=== PATIENT | female | born 1980 | race African-American/Black ===

== ENCOUNTER 2017-11-10 10:16 | Inpatient (IN) | payer OTHER ==
--- NOTE | 2017-11-10 11:18 | ER Document Report ---
ED Headache - General Chief Complaint: Headache Stated Complaint: HEADACHE Time Seen by Provider: 11/10/17 11:17 Mode of Arrival: Ambulatory Information source: Patient TRAVEL OUTSIDE OF THE [place] IN LAST 30 DAYS: No - HPI Patient complains to provider of: "Migraine" Patient reports: Occasional migraines Onset: Yesterday Onset was: Abrupt. denies: Thunderclap Timing: Still present Quality of pain: Dull, Throbbing Severity: Severe Context: denies: CO exposure, Head injury, Insect bite, Meningitis exposure, Tick bite Associated symptoms: Chills, Nausea/vomiting, Photophobia. denies: Fever Exacerbated by: Light, Noise, Movement Similar symptoms previously: Yes - SAYS PRESENT H.A. ENTIRELY TYPICAL FOR HER "MIGRAINES" Recently seen / treated by doctor: No - Related Data Allergies/Adverse Reactions: ketorolac tromethamine [From Toradol] Allergy (Verified 10/08/16 14:46) metoclopramide [From Reglan] Allergy (Verified 10/08/16 14:46) quetiapine fumarate [From Seroquel] Allergy (Verified 10/08/16 14:46) sumatriptan [From Imitrex] Allergy (Verified 10/08/16 14:46) topiramate [From Topamax] Allergy (Verified 10/08/16 14:46) venlafaxine [Venlafaxine] Allergy (Verified 10/08/16 14:46) Past Medical History - General Information source: Patient - Social History Smoking Status: Unknown if Ever Smoked Frequency of alcohol use: Rare Drug Abuse: None Lives with: Spouse/Significant other Family History: Reviewed & Not Pertinent Patient has suicidal ideation: No Patient has homicidal ideation: No - Past Medical History Cardiac Medical History: Reports: None Pulmonary Medical History: Reports: None EENT Medical History: Reports: None Neurological Medical History: Reports: Hx Migraine Endocrine Medical History: Reports: None Renal/ Medical History: Reports: Hx Kidney Stones Malignancy Medical History: Reports: None GI Medical History: Reports: None Musculoskeltal Medical History: 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 denies: Fever EENT: No symptoms reported Cardiovascular: No symptoms reported Respiratory: No symptoms reported Gastrointestinal: See HPI Genitourinary: No symptoms reported Female Genitourinary: No symptoms reported Musculoskeletal: No symptoms reported Skin: No symptoms reported Neurological/Psychological: See HPI Physical Exam - Vital signs Vitals: Temp Pulse Resp BP Pulse Ox 99.0 F 74 20 157/87 H 100 11/10/17 10:25 11/10/17 10:25 11/10/17 10:25 11/10/17 10:25 11/10/17 10:25 Interpretation: Hypertensive. No: Tachycardic, Tachypneic, Febrile - General General appearance: Appears well, Alert In distress: None - HEENT Head: Normocephalic Eyes: Normal, Other - PHOTOPHOBIC Conjunctiva: Normal Ears: Normal Nasal: Normal Mouth/Lips: Normal Mucous membranes: Normal Pharynx: Normal Neck: Normal, Supple - Respiratory Respiratory status: No respiratory distress - Cardiovascular Rhythm: Regular - Abdominal Inspection: Normal Distension: No distension - Back Back: Normal - Extremities General upper extremity: Normal inspection General lower extremity: Normal inspection - Neurological Neuro grossly intact: Yes Cognition: Normal Orientation: AAOx4 - Psychological Associated symptoms: Normal affect, Normal mood - Skin Skin Temperature: Warm Skin Moisture: Dry Skin Color: Normal Skin Turgor: Elastic Course - Vital Signs Vital signs: Temp Pulse Resp BP Pulse Ox 99.0 F 78 16 179/109 H 100 11/10/17 10:25 11/10/17 17:39 11/10/17 13:00 11/10/17 17:39 11/10/17 10:25 - Laboratory Result Diagrams: 11/10/17 15:00 11/10/17 15:00 Laboratory results interpreted by me: 11/10/17 15:00 Potassium 3.1 L Chloride 109 H Carbon Dioxide 20 L - Consults DR. GONZALEZ Time consulted: 17:48 Consulted provider: will come to ER Discharge - Discharge Clinical Impression: Hypertensive urgency Migraine headache Qualifiers: Migraine type: unspecified Status migrainosus presence: without status migrainosus Intractability: intractable Qualified Code(s): G43.919 - Migraine, unspecified, intractable, without status migrainosus Condition: Good Disposition: ADMITTED OBSERVATION Admitting Provider: Hospitalist
[2017-11-10] MEDS ORDERED: NORMAL SALINE 1000 ML 1,000 ML IV ONE ×2 (11:33→15:41)
[2017-11-10] MEDS ORDERED: ONDANSETRON HCL INJ/PF 4 MG/2 ML SDV IV ONE ×2 (11:33→14:27)
[2017-11-10] MEDS ORDERED: DIPHENHYDRAMINE HCL 50 MG/ML VIAL IV ONE ×3 (11:33→20:00)
[2017-11-10] MEDS ORDERED: HYDRALAZINE HCL INJ/PF 20 MG/1 ML SDV IV ONE (11:34)
[2017-11-10] MEDS ORDERED: HYDROMORPHONE HCL INJ/PF 2 MG/ML AMPULE IV ONE (14:27)
[2017-11-10 15:15] LABS: ABSOLUTE BASOPHILS # (AUTO) 0.1 10^3/uL (0.0-0.2); ABSOLUTE LYMPHOCYTES (AUTO) 1.9 10^3/uL (0.5-4.7); ABSOLUTE MONOCYTES (AUTO) 0.4 10^3/uL (0.1-1.4); ABSOLUTE NEUT (AUTO) 3.3 10^3/uL (1.7-8.2); BASOPHILS % (AUTO) 0.9 % (0-2); EOSINOPHILS % (AUTO) 0.5 % (0-6); HEMATOCRIT 40.8 % (36.0-47.0); HEMOGLOBIN 14.1 g/dL (12.0-15.5); LYMPHOCYTES % (AUTO) 32.8 % (13-45); MEAN CORPUSCULAR HEMOGLOBIN 30.7 pg (27.0-33.4); MEAN CORPUSCULAR HGB CONC 34.6 g/dL (32.0-36.0); MEAN CORPUSCULAR VOLUME 89 fl (80-97); MONOCYTES % (AUTO) 7.2 % (3-13); PLATELET COUNT 239 10^3/uL (150-450); RED BLOOD COUNT 4.59 10^6/uL (3.72-5.28); RED CELL DISTRIBUTION WIDTH 12.4 % (11.5-14.0); SEGMENTED NEUTROPHILS % (AUTO) 58.6 % (42-78); TOTAL CELLS COUNTED % (AUTO) 100 %; WHITE BLOOD COUNT 5.7 10^3/uL (4.0-10.5)
[2017-11-10] MEDS ORDERED: METOPROLOL TARTRATE PF/INJ 5 MG/5 ML SDV IV ONE (15:23)
[2017-11-10 15:35] LABS: ALANINE AMINOTRANSFERASE 39 U/L (9-52); ALBUMIN 4.4 g/dL (3.5-5.0); ALKALINE PHOSPHATASE 96 U/L (38-126); ANION GAP 12 (5-19); ASPARTATE AMINO TRANSFERASE 20 U/L (14-36); BILIRUBIN,DIRECT 0.1 mg/dL (0.0-0.4); BILIRUBIN,TOTAL 0.5 mg/dL (0.2-1.3); BLOOD UREA NITROGEN 11 mg/dL (7-20); CALCIUM 9.4 mg/dL (8.4-10.2); CARBON DIOXIDE 20 mmol/L (22-30); CHLORIDE 109 mmol/L (98-107); GLUCOSE 88 mg/dL (75-110); POTASSIUM 3.1 mmol/L (3.6-5.0); SODIUM 141.4 mmol/L (137-145); TOTAL PROTEIN 7.1 g/dL (6.3-8.2)
[2017-11-10] MEDS ORDERED: PROMETHAZINE HCL INJ 25 MG/1 ML VIAL IV ONE ×2 (15:39→20:00)
[2017-11-10] MEDS ORDERED: LABETALOL HCL INJ 20 MG/4 ML DISP.SYRIN IV ONE (17:36)
[2017-11-10] MEDS ORDERED: ZOLPIDEM TARTRATE 5 MG TABLET PO PRN (17:53)
[2017-11-10] MEDS ORDERED: BUTALB/ACETAMINOPHEN/CAFFEINE 1 TAB EACH PO PRN (18:00)
[2017-11-10] MEDS ORDERED: CLONIDINE HCL 0.1 MG TABLET PO PRN (18:01)
[2017-11-10] MEDS ORDERED: NIFEDIPINE 30 MG TAB.ER.24 PO ONE (18:30)
[2017-11-10] MEDS ORDERED: LORAZEPAM 0.5 MG TABLET PO ONE (18:30)
[2017-11-10] MEDS ORDERED: CLONIDINE HCL 0.1 MG TABLET PO ONE (18:30)
[2017-11-10] MEDS ORDERED: POTASSIUM CHLORIDE IV PRN ×3 (18:56)
[2017-11-10] MEDS ORDERED: WATER IV PRN ×3 (18:56)
[2017-11-10] MEDS ORDERED: SODIUM CHLORIDE IV PRN ×3 (18:56)
[2017-11-10] MEDS ORDERED: DEXTROSE 10% IV PRN ×3 (18:56)
[2017-11-10] MEDS ORDERED: LORAZEPAM INJ 2 MG/1 ML VIAL IV ONE (20:00)
[2017-11-10] MEDS: POTASSI CL 40 MEQ/D5-1/2NS 1L 1000 ML IV PRN (21:16)
[2017-11-10] MEDS: ONDANSETRON HCL INJ/PF 4 MG/2 ML SDV IV PRN (22:27)
[2017-11-10] MEDS: PROMETHAZINE HCL 25 MG TABLET PO PRN (23:45)
[2017-11-10] MEDS: OXYCODONE-ACETAMINOPHEN 5-325 MG TABLET PO PRN (23:45)
--- NOTE | 2017-11-11 00:02 | PDOC H&P ---
History of Present Illness Admission Date/PCP: 11/10/17 19:40 Patient complains of: Headache History of Present Illness: RAAD POTTS is a 37 year old female with a history of migraines. Patient states that she normally has headaches twice a week however this time she woke up on with a throbbing headache. Patient states she has been nauseated and vomiting. Patient states normally at home she takes her Maxalt which helped. However this time it was not helping. Patient states she spent time laying on the floor with a cool rag on her head. Patient states normally when this happens she comes to the ED and she is given magnesium, Dilaudid, Phenergan and it normally works. Patient normally follows up with [facility]. In the ED patient was found to be hypertensive with a systolic blood pressure 176/107. Patient states normally she is not hypertensive however when she does have a headache her blood pressure does go up. Hospitalist was called to admit patient for intractable migraine and hypertensive emergency. Past Medical History Cardiac Medical History: Reports: None Pulmonary Medical History: Reports: None EENT Medical History: Reports: None Neurological Medical History: Reports: Migraine Endocrine Medical History: Reports: None Malignancy Medical History: Reports: None GI Medical History: Reports: None Musculoskeltal Medical History: Reports: Arthritis - spinal Psychiatric Medical History: Reports: None Past Surgical History Past Surgical History: Reports: Tonsillectomy Social History Information Source: Patient Lives with: Spouse/Significant other Smoking Status: Never Smoker - Advance Directive Resuscitation Status: Full Code Family History Family History: DM Parental Family History Reviewed: No Children Family History Reviewed: No Sibling(s) Family History Reviewed.: No Medication/Allergy Home Medications: Diphenhydramine HCl [Benadryl] 50 mg PO QHS 11/10/17 Mirtazapine [Remeron 15 mg Tablet] 45 mg PO QHS 11/10/17 Tizanidine HCl [Zanaflex 4 Mg Tablet] 12 mg PO QHS 11/10/17 Allergies/Adverse Reactions: ketorolac tromethamine [From Toradol] Allergy (Verified 10/08/16 14:46) metoclopramide [From Reglan] Allergy (Verified 10/08/16 14:46) quetiapine fumarate [From Seroquel] Allergy (Verified 10/08/16 14:46) sumatriptan [From Imitrex] Allergy (Verified 10/08/16 14:46) topiramate [From Topamax] Allergy (Verified 10/08/16 14:46) venlafaxine [Venlafaxine] Allergy (Verified 10/08/16 14:46) Review of Systems Constitutional: PRESENT: headache(s). ABSENT: chills, fever(s), weight gain, weight loss Eyes: ABSENT: visual disturbances Ears: ABSENT: hearing changes Cardiovascular: ABSENT: chest pain, dyspnea on exertion, edema, orthropnea, palpitations Respiratory: ABSENT: cough, hemoptysis Gastrointestinal: PRESENT: nausea, vomiting. ABSENT: abdominal pain, constipation, diarrhea, hematemesis, hematochezia Genitourinary: ABSENT: dysuria, hematuria Musculoskeletal: ABSENT: joint swelling Integumentary: ABSENT: rash, wounds Neurological: ABSENT: abnormal gait, abnormal speech, confusion, dizziness, focal weakness, syncope Psychiatric: ABSENT: anxiety, depression, homidical ideation, suicidal ideation Endocrine: ABSENT: cold intolerance, heat intolerance, polydipsia, polyuria Hematologic/Lymphatic: ABSENT: easy bleeding, easy bruising Physical Exam Vital Signs: Temp Pulse Resp BP Pulse Ox 99.0 F 78 9 L 163/98 H 100 11/10/17 10:25 11/10/17 17:39 11/10/17 22:30 11/10/17 22:30 11/10/17 22:30 Intake & Output 11/09/17 11/10/17 11/11/17 06:59 06:59 06:59 Output Total 600 Balance -600 General appearance: PRESENT: mild distress, well-developed, well-nourished Head exam: PRESENT: atraumatic, normocephalic Eye exam: PRESENT: conjunctiva pink, EOMI, PERRLA. ABSENT: scleral icterus Ear exam: PRESENT: normal external ear exam Mouth exam: PRESENT: moist, tongue midline Neck exam: ABSENT: carotid bruit, JVD, lymphadenopathy, thyromegaly Respiratory exam: PRESENT: clear to auscultation rolando. ABSENT: rales, rhonchi, wheezes Cardiovascular exam: PRESENT: RRR. ABSENT: diastolic murmur, rubs, systolic murmur Pulses: PRESENT: normal dorsalis pedis pul Vascular exam: PRESENT: normal capillary refill GI/Abdominal exam: PRESENT: normal bowel sounds, soft. ABSENT: distended, guarding, mass, organolmegaly, rebound, tenderness Rectal exam: PRESENT: deferred Extremities exam: PRESENT: full ROM. ABSENT: calf tenderness, clubbing, pedal edema Neurological exam: PRESENT: alert, awake, oriented to person, oriented to place , oriented to time, oriented to situation, CN II-XII grossly intact. ABSENT: motor sensory deficit Psychiatric exam: PRESENT: appropriate affect, normal mood. ABSENT: homicidal ideation, suicidal ideation Skin exam: PRESENT: dry, intact, warm. ABSENT: cyanosis, rash Results Laboratory Results: 11/10/17 11/10/17 15:00 15:00 WBC 5.7 RBC 4.59 Hgb 14.1 Hct 40.8 MCV 89 MCH 30.7 MCHC 34.6 RDW 12.4 Plt Count 239 Seg Neutrophils % 58.6 Lymphocytes % 32.8 Monocytes % 7.2 Eosinophils % 0.5 Basophils % 0.9 Absolute Neutrophils 3.3 Absolute Lymphocytes 1.9 Absolute Monocytes 0.4 Absolute Eosinophils 0.0 Absolute Basophils 0.1 Sodium 141.4 Potassium 3.1 L Chloride 109 H Carbon Dioxide 20 L Anion Gap 12 BUN 11 Creatinine 0.74 Est GFR ( Amer) > 60 Est GFR (Non-Af Amer) > 60 Glucose 88 Calcium 9.4 Total Bilirubin 0.5 Direct Bilirubin 0.1 AST 20 ALT 39 Alkaline Phosphatase 96 Total Protein 7.1 Albumin 4.4 Assessment & Plan - Diagnosis (1) Hypertensive emergency without congestive heart failure Is this a current diagnosis for this admission?: Yes Plan: Patient with blood pressure 176/107. Patient states that her head is hurting, she is nauseated and vomiting. Patient was given IV hydralazine and labetalol in the ED. Patient will be given clonidine, Procardia and anti-medics. She does not have a history of hypertension. Uncertain if the hypertension is causing headache for the headache is causing hypertension. Will also give pain medications for the headache to see if this controls the blood pressure. (2) Hypokalemia Is this a current diagnosis for this admission?: Yes Plan: Potassium to the fluids. Hesitant to give patient oral replacement she is nauseated and vomiting. Follow-up potassium level. Note that potassium is 3.1. (3) Migraine headache Qualifiers: Migraine type: unspecified Status migrainosus presence: without status migrainosus Intractability: intractable Qualified Code(s): G43.919 - Migraine, unspecified, intractable, without status migrainosus Is this a current diagnosis for this admission?: Yes Plan: She has a history of migraines however this one is persistent. Will hydrate patient. Will give magnesium if her magnesium level is low. Patient insists on receiving opiates for her headache stating that this normally aborts the headache. Will attempt to do this however this is not my first choice. IV fluids, Dilaudid, Benadryl, Fioricet as ordered. - Time Time Spent: 30 to 50 Minutes Anticipated discharge: Home Within: within 48 hours - Inpatient Certification Medical Necessity: Need For IV Fluids, Need for Pain Control
[2017-11-11] MEDS ORDERED: DIPHENHYDRAMINE HCL 50 MG/ML VIAL IV PRN (00:03)
[2017-11-11] MEDS: HYDROMORPHONE HCL INJ/PF 2 MG/ML AMPULE IV PRN ×4 (02:46→22:25)
[2017-11-11] MEDS: LORAZEPAM INJ 2 MG/1 ML VIAL IV PRN ×3 (02:47→21:25)
[2017-11-11] MEDS: ONDANSETRON HCL INJ/PF 4 MG/2 ML SDV IV PRN ×2 (09:39→19:31)
[2017-11-11] MEDS: POTASSI CL 40 MEQ/D5-1/2NS 1L 1000 ML IV PRN (09:40)
[2017-11-11] MEDS: DOCUSATE SODIUM 100 MG CAPSULE PO SCH (09:43)
[2017-11-11 10:06] LABS: ANION GAP 8 (5-19); BLOOD UREA NITROGEN 7 mg/dL (7-20); CALCIUM 9.3 mg/dL (8.4-10.2); CARBON DIOXIDE 23 mmol/L (22-30); CHLORIDE 108 mmol/L (98-107); GLUCOSE 89 mg/dL (75-110); MAGNESIUM 1.8 mg/dL (1.6-2.3); POTASSIUM 3.7 mmol/L (3.6-5.0); SODIUM 138.6 mmol/L (137-145)
[2017-11-11] MEDS ORDERED: POTASSI CL 40 MEQ/D5-1/2NS 1L 40 MEQ/1,000 ML RTUINJ IV PRN (14:05)
--- NOTE | 2017-11-11 14:37 | PDOC PROGRESS REPORT ---
Subjective Progress Note for:: 11/11/17 Subjective:: Patient with intractable migraine. Patient is lying in bed with covers still in distress. Patient states she only slept for about 10 minutes. Patient states the pain is still there. Discussed with patient about different medication she has tried in the past. Patient has tried multiple medications. Patient states that she had body spasms last night. Patient refused to take Fioricet stating that she should not take that medication. Reason For Visit: HYPERTENSIVE EMERGENCY Physical Exam Vital Signs: Temp Pulse Resp BP Pulse Ox 98.5 F 70 16 142/83 H 100 11/11/17 11:19 11/11/17 11:19 11/11/17 11:19 11/11/17 11:19 11/11/17 11:19 Intake & Output 11/10/17 11/11/17 11/12/17 06:59 06:59 06:59 Intake Total 1205 Output Total 600 Balance 605 Weight 75.6 kg General appearance: PRESENT: no acute distress, well-developed, well-nourished Eye exam: PRESENT: other - Patient wearing night goggles. ABSENT: scleral icterus Ear exam: PRESENT: normal external ear exam Mouth exam: PRESENT: moist, tongue midline Neck exam: ABSENT: carotid bruit, JVD, lymphadenopathy, thyromegaly Respiratory exam: PRESENT: clear to auscultation rolando. ABSENT: rales, rhonchi, wheezes Cardiovascular exam: PRESENT: RRR. ABSENT: diastolic murmur, rubs, systolic murmur Pulses: PRESENT: normal dorsalis pedis pul Vascular exam: PRESENT: normal capillary refill GI/Abdominal exam: PRESENT: normal bowel sounds, soft. ABSENT: distended, guarding, mass, organolmegaly, rebound, tenderness Rectal exam: PRESENT: deferred Extremities exam: PRESENT: full ROM. ABSENT: calf tenderness, clubbing, pedal edema Neurological exam: PRESENT: alert, awake, oriented to person, oriented to place , oriented to time, oriented to situation, CN II-XII grossly intact. ABSENT: motor sensory deficit Psychiatric exam: PRESENT: appropriate affect, normal mood. ABSENT: homicidal ideation, suicidal ideation Skin exam: PRESENT: dry, intact, warm. ABSENT: cyanosis, rash Results Laboratory Results: 11/11/17 08:59 11/11/17 08:59 Sodium 138.6 Potassium 3.7 Chloride 108 H Carbon Dioxide 23 Anion Gap 8 BUN 7 Creatinine 0.72 Est GFR ( Amer) > 60 Est GFR (Non-Af Amer) > 60 Glucose 89 Calcium 9.3 Magnesium 1.8 Assessment & Plan - Diagnosis (1) Hypertensive emergency without congestive heart failure Is this a current diagnosis for this admission?: Yes Plan: Patient with blood pressure 176/107. Patient states that her head is hurting, she is nauseated and vomiting. Patient was given IV hydralazine and labetalol in the ED. patient blood pressure is significantly improved. Continue with low- dose Procardia as that can be a abortive medication for migraines. Will also continue with the as needed clonidine. Patient states that she does not have a history of headaches. (2) Hypokalemia Is this a current diagnosis for this admission?: Yes Plan: Potassium to the fluids. Patient potassium is now 3.7. Will decrease the rate of the fluid to 50 cc an hour as he still contains potassium. Will monitor. (3) Migraine headache Qualifiers: Migraine type: unspecified Status migrainosus presence: without status migrainosus Intractability: intractable Qualified Code(s): G43.919 - Migraine, unspecified, intractable, without status migrainosus Is this a current diagnosis for this admission?: Yes Plan: Patient still with severe headache. Will continue hydration. Will give 1 g of magnesium as patient magnesium level is 1.8. Will start patient on oral magnesium. Will give a dose of sodium valproate IV, IV muscle relaxant and Decadron. Patient will continue on Procardia low-dose. Hopefully patient is able to rest as I do believe lack of sleep is playing a role in her persistent migraine. - Time Time Spent with patient: 15-24 minutes Anticipated discharge: Home Within: within 24 hours - Inpatient Certification Medical Necessity: Need for Pain Control
[2017-11-11] MEDS ORDERED: DEXAMETHASONE SOD PHOS INJ 10 MG/1 ML VIAL IV ONE (15:00)
[2017-11-11] MEDS ORDERED: MAGNESIUM OXIDE 400 MG TABLET PO ONE (15:30)
[2017-11-11] MEDS ORDERED: MAGNESIUM SULFATE/D5W 1 GM/100 ML RTUPB IV ONE (15:30)
[2017-11-11] MEDS ORDERED: METHOCARBAMOL 500 MG in DEXTROSE 5%-WATER 50 ML IV ONE (15:30)
[2017-11-11] MEDS ORDERED: VALPROATE SODIUM 500 MG in NORMAL SALINE 100 ML IV ONE (16:00)
[2017-11-11] MEDS: PROMETHAZINE HCL 25 MG TABLET PO PRN (16:19)
[2017-11-11] MEDS: MAGNESIUM OXIDE 400 MG TABLET PO SCH (21:22)
[2017-11-11] MEDS: TIZANIDINE HCL 4 MG TABLET PO SCH (21:23)
[2017-11-11] MEDS: MIRTAZAPINE 15 MG TABLET PO SCH (21:24)
[2017-11-12] MEDS: HYDROMORPHONE HCL INJ/PF 2 MG/ML AMPULE IV PRN ×4 (08:12→22:19)
[2017-11-12] MEDS: LORAZEPAM INJ 2 MG/1 ML VIAL IV PRN ×2 (08:16→16:41)
[2017-11-12] MEDS: MAGNESIUM OXIDE 400 MG TABLET PO SCH ×2 (08:20→22:01)
[2017-11-12] MEDS: DOCUSATE SODIUM 100 MG CAPSULE PO SCH (08:21)
[2017-11-12] MEDS: NIFEDIPINE 30 MG TAB.ER.24 PO SCH (08:22)
--- NOTE | 2017-11-12 08:41 | RADIOLOGY REPORT (SQ) ---
EXAM DESCRIPTION: CT HEAD WITHOUT COMPLETED DATE/TIME: 11/12/2017 8:31 am REASON FOR STUDY: headache COMPARISON: None. TECHNIQUE: Axial images acquired through the brain without intravenous contrast. Images reviewed wi th bone, brain and subdural windows. Images stored on PACS. All CT scanners at this facility use dose modulation, iterative reconstruction, and/or weight based d osing when appropriate to reduce radiation dose to as low as reasonably achievable (ALARA). [facility]: Dose Right [facility]: CareDose [facility]: Dose Right [facility]: Teradose 4D [facility]: [facility] RADIATION DOSE: CT Rad equipment meets quality standard of care and radiation dose reduction techniq ues were employed. CTDIvol: 64.6 mGy. DLP: 1163 mGy-cm. mGy. LIMITATIONS: None. FINDINGS: VENTRICLES: Normal size and contour. CEREBRUM: No masses. No hemorrhage. No midline shift. No evidence for acute infarction. Normal gra y/white matter differentiation. No areas of low density in the white matter. CEREBELLUM: No masses. No hemorrhage. No alteration of density. No evidence for acute infarction. EXTRAAXIAL SPACES: No fluid collections. No masses. ORBITS AND GLOBE: No intra- or extraconal masses. Normal contour of globe without masses. CALVARIUM: No fracture. PARANASAL SINUSES: No fluid or mucosal thickening. SOFT TISSUES: No mass or hematoma. OTHER: No other significant finding. IMPRESSION: NORMAL BRAIN CT WITHOUT CONTRAST. EVIDENCE OF ACUTE STROKE: NO. COMMENT: Quality ID # [id number]: Final reports with documentation of one or more dose reduction techniques (e.g., Automated exposure control, adjustment of the mA and/or kV according to patient size, use of iterative reconstruction technique) TECHNICAL DOCUMENTATION: JOB ID: [id number] PA-69 2010 [employer]- All Rights Reserved
[2017-11-12] MEDS: ONDANSETRON HCL INJ/PF 4 MG/2 ML SDV IV PRN ×3 (11:50→22:19)
--- NOTE | 2017-11-12 13:27 | PDOC PROGRESS REPORT ---
Subjective Progress Note for:: 11/12/17 Subjective:: The patient is a 37-year-old female who has a diagnosis of migraine. Apparently , her migraine history began after a traumatic fall down a flight of stairs. Her care is directed by a neurologist at [facility]. She presents now with intractable migraine pain. Unfortunately, she is unable to take any food p.o. Therefore, she is unable to use oral medications for her migraine. She also came in with uncontrolled hypertension. Her blood pressure is now under much better control. In general, she states that her headache will lead to hypotension from pain, but, she wonders if she has some underlying hypertension that also contributes to headaches. Reason For Visit: HYPERTENSIVE EMERGENCY Physical Exam Vital Signs: Temp Pulse Resp BP Pulse Ox 98.0 F 80 17 115/82 99 11/12/17 03:34 11/12/17 03:34 11/12/17 03:34 11/12/17 03:34 11/12/17 03:34 Intake & Output 11/11/17 11/12/17 11/13/17 06:59 06:59 06:59 Intake Total 1205 2256 Output Total 600 Balance 605 2256 Weight 75.6 kg 76.2 kg Additional comments: The patient is a healthy-appearing middle-aged female. Her cognition and mentation are appropriate. Her neurological exam is nonfocal. Her facial appearance is normal and her dentition is good. Her lungs are noted to be clear to auscultation bilaterally. Her cardiac exam is regular without murmurs , gallops or rubs. The abdomen is soft and flat. Bowel sounds are noted in the lower quadrants. The abdomen is benign. The extremity exam is unremarkable. The skin is warm, dry and intact without lesions or rashes. Results Laboratory Results: 11/11/17 08:59 11/12/17 08:09 Magnesium 2.2 Impressions: Head CT 11/12/17 00:00 IMPRESSION: NORMAL BRAIN CT WITHOUT CONTRAST. EVIDENCE OF ACUTE STROKE: NO. Assessment & Plan - Diagnosis (1) Hypertensive urgency Is this a current diagnosis for this admission?: Yes Plan: Resolved. Continue nifedipine. Patient also has clonidine ordered as needed. (2) Hypokalemia Is this a current diagnosis for this admission?: Yes Plan: Resolved. I will stop IV fluids. (3) Migraine headache Qualifiers: Migraine type: unspecified Status migrainosus presence: without status migrainosus Intractability: intractable Qualified Code(s): G43.919 - Migraine, unspecified, intractable, without status migrainosus Is this a current diagnosis for this admission?: Yes Plan: Patient did not improve after steroids, Robaxin and Depakote. She is currently on IV pain control due to persistent nausea with intermittent vomiting. Therefore, I cannot switch her over to her oral agents as of yet and therefore she cannot be discharged at this time. - Time Time Spent with patient: 15-24 minutes - Inpatient Certification Medical Necessity: Need for Neurological Checks, Need for Pain Control
[2017-11-12] MEDS: TIZANIDINE HCL 4 MG TABLET PO SCH (21:59)
[2017-11-12] MEDS: MIRTAZAPINE 15 MG TABLET PO SCH (22:00)
[2017-11-13] MEDS: HYDROMORPHONE HCL INJ/PF 2 MG/ML AMPULE IV PRN ×4 (06:07→18:18)
[2017-11-13] MEDS: ONDANSETRON HCL INJ/PF 4 MG/2 ML SDV IV PRN ×3 (07:41→20:08)
[2017-11-13] MEDS: ACETAMINOPHEN 325 MG TABLET PO PRN (07:48)
[2017-11-13 08:22] LABS: ANION GAP 6 (5-19); BLOOD UREA NITROGEN 9 mg/dL (7-20); CARBON DIOXIDE 26 mmol/L (22-30); CHLORIDE 108 mmol/L (98-107); GLUCOSE 82 mg/dL (75-110); SODIUM 139.7 mmol/L (137-145)
[2017-11-13 08:33] LABS: CALCIUM 9.4 mg/dL (8.4-10.2); POTASSIUM 3.8 mmol/L (3.6-5.0)
[2017-11-13] MEDS: PROMETHAZINE HCL 25 MG TABLET PO PRN (09:00)
[2017-11-13] MEDS: PROMETHAZINE HCL INJ 25 MG/1 ML VIAL IV PRN ×2 (10:57→18:21)
--- NOTE | 2017-11-13 11:10 | PDOC PROGRESS REPORT ---
Subjective Progress Note for:: 11/13/17 Subjective:: The patient is a 37-year-old female who has a diagnosis of migraine. Apparently , her migraine history began after a traumatic fall down a flight of stairs. Her care is directed by a neurologist at [facility]. She presents now with intractable migraine pain. Unfortunately, she is unable to take any food p.o. Therefore, she is unable to use oral medications for her migraine. She also came in with uncontrolled hypertension. Her blood pressure is now under much better control. In general, she states that her headache will lead to hypotension from pain, but, she wonders if she has some underlying hypertension that also contributes to headaches. In addition, the patient is having intractable nausea and vomiting and she is unable to take anything p.o. Reason For Visit: HYPERTENSIVE EMERGENCY Physical Exam Vital Signs: Temp Pulse Resp BP Pulse Ox 98.5 F 61 18 134/84 H 100 11/13/17 07:33 11/13/17 07:33 11/13/17 07:33 11/13/17 07:33 11/13/17 07:33 Intake & Output 11/12/17 11/13/17 11/14/17 06:59 06:59 06:59 Intake Total 2256 990 Balance 2256 990 Weight 76.2 kg 77 kg Additional comments: The patient was lying in bed. She wakes up easily despite having just received 1 mg of Dilaudid. Her cognition and mentation are intact. Her facial appearance is unremarkable. Her lungs are clear to auscultation bilaterally. Her cardiac exam is regular without murmurs, gallops or rubs. The abdomen is soft and flat. Bowel sounds are present. The lower extremities are warm to touch without any edema. The skin is warm, dry and intact without lesions or rashes. Results Laboratory Results: 11/13/17 07:38 11/13/17 07:38 Sodium 139.7 Potassium 3.8 Chloride 108 H Carbon Dioxide 26 Anion Gap 6 BUN 9 Creatinine 0.80 Est GFR ( Amer) > 60 Est GFR (Non-Af Amer) > 60 Glucose 82 Calcium 9.4 Impressions: Head CT 11/12/17 00:00 IMPRESSION: NORMAL BRAIN CT WITHOUT CONTRAST. EVIDENCE OF ACUTE STROKE: NO. Assessment & Plan - Diagnosis (1) Hypertensive urgency Is this a current diagnosis for this admission?: Yes Plan: Resolved. Continue nifedipine. Patient also has clonidine ordered as needed. (2) Hypokalemia Is this a current diagnosis for this admission?: Yes Plan: Resolved. I will stop IV fluids. (3) Migraine headache Qualifiers: Migraine type: unspecified Status migrainosus presence: without status migrainosus Intractability: intractable Qualified Code(s): G43.919 - Migraine, unspecified, intractable, without status migrainosus Is this a current diagnosis for this admission?: Yes Plan: Patient did not improve after steroids, Robaxin and Depakote. She is currently on IV pain control due to persistent nausea with intermittent vomiting. Therefore, I cannot switch her over to her oral agents as of yet and therefore she cannot be discharged at this time. IV phenergan was started last evening with modest improvement. - Time Time Spent with patient: 15-24 minutes - Inpatient Certification Medical Necessity: Need for Pain Control - Unable to take anything per oral route.
[2017-11-13] MEDS: DOCUSATE SODIUM 100 MG CAPSULE PO SCH (11:57)
[2017-11-13] MEDS: MAGNESIUM OXIDE 400 MG TABLET PO SCH ×2 (11:57→21:26)
[2017-11-13] MEDS: NIFEDIPINE 30 MG TAB.ER.24 PO SCH (11:57)
[2017-11-13] MEDS: 1/2 NORMAL SALINE 1,000 ML IV PRN (19:57)
[2017-11-13] MEDS: LORAZEPAM INJ 2 MG/1 ML VIAL IV PRN (19:57)
[2017-11-13] MEDS: TIZANIDINE HCL 4 MG TABLET PO SCH (21:24)
[2017-11-13] MEDS: MIRTAZAPINE 15 MG TABLET PO SCH (21:25)
[2017-11-14] MEDS: HYDROMORPHONE HCL INJ/PF 2 MG/ML AMPULE IV PRN ×5 (02:59→21:30)
[2017-11-14] MEDS: PROMETHAZINE HCL INJ 25 MG/1 ML VIAL IV PRN ×3 (04:46→17:20)
[2017-11-14] MEDS: LORAZEPAM INJ 2 MG/1 ML VIAL IV PRN ×2 (07:33→15:44)
[2017-11-14] MEDS: 1/2 NORMAL SALINE 1,000 ML IV PRN (08:51)
[2017-11-14] MEDS: OXYCODONE-ACETAMINOPHEN 5-325 MG TABLET PO PRN (08:52)
[2017-11-14] MEDS: ONDANSETRON HCL INJ/PF 4 MG/2 ML SDV IV PRN ×3 (08:52→19:28)
[2017-11-14] MEDS: DOCUSATE SODIUM 100 MG CAPSULE PO SCH (10:10)
[2017-11-14] MEDS: NIFEDIPINE 30 MG TAB.ER.24 PO SCH ×2 (10:10→21:23)
[2017-11-14] MEDS: MAGNESIUM OXIDE 400 MG TABLET PO SCH ×2 (10:10→21:25)
--- NOTE | 2017-11-14 16:34 | PDOC PROGRESS REPORT ---
Subjective Progress Note for:: 11/14/17 Subjective:: The patient is a 37-year-old female who has a diagnosis of migraine. Apparently , her migraine history began after a traumatic fall down a flight of stairs. Her care is directed by a neurologist at [facility]. She presents now with intractable migraine pain. Unfortunately, she is unable to take any food p.o. Therefore, she is unable to use oral medications for her migraine. She also came in with uncontrolled hypertension. Her blood pressure is now under much better control. In general, she states that her headache will lead to hypertension from pain, but, she wonders if she has some underlying hypertension that also contributes to headaches. In addition, the patient is having intractable nausea and vomiting and she is unable to take anything p.o. today, I was able to speak to the patient's neurologist, Dr. Abdulkadir Jordan at [facility]. He states that the patient has been refractory in the past IV Depakote and dihydroergotamine. He recommended that I initiate a trial of Haldol. He also told me that the patient appeared to be improving while taking candesartan. I explained that she was not currently on candesartan and that I would need to address this with the patient. Due to poor p.o. intake the patient has been placed on IV fluids again. Reason For Visit: INTRACTABLE MIGRAINE Physical Exam Vital Signs: Temp Pulse Resp BP Pulse Ox 98.5 F 91 14 150/106 H 100 11/14/17 12:15 11/14/17 12:15 11/14/17 12:15 11/14/17 12:38 11/14/17 12:15 Intake & Output 11/13/17 11/14/17 11/15/17 06:59 06:59 06:59 Intake Total 1805 Balance 1805 Additional comments: The patient is lying in bed with a shield over her eyes. She appears to be mildly uncomfortable. Her cognition and mentation are appropriate. Neurologically, she follows commands and is able to move all 4 extremities. Her facial appearance is unremarkable. Her lungs are clear to auscultation bilaterally. Her cardiac exam is regular without murmurs, gallops or rubs. The abdomen is soft, flat and benign. Bowel sounds are present in the lower quadrants. There is no guarding or rebound and there are no hernias or masses present. The lower extremities are warm to touch without edema. The skin is warm, dry and intact without lesions or rashes. Results Impressions: Head CT 11/12/17 00:00 IMPRESSION: NORMAL BRAIN CT WITHOUT CONTRAST. EVIDENCE OF ACUTE STROKE: NO. Assessment & Plan - Diagnosis (1) Hypertensive urgency Is this a current diagnosis for this admission?: Yes Plan: Resolved. Continue nifedipine. Patient also has clonidine ordered as needed. I will add candesartan (2) Hypokalemia Is this a current diagnosis for this admission?: Yes Plan: Resolved. I will stop IV fluids. (3) Migraine headache Qualifiers: Migraine type: unspecified Status migrainosus presence: without status migrainosus Intractability: intractable Qualified Code(s): G43.919 - Migraine, unspecified, intractable, without status migrainosus Is this a current diagnosis for this admission?: Yes Plan: Patient did not improve after steroids, Robaxin and Depakote. She is currently on IV pain control due to persistent nausea with intermittent vomiting. Therefore, I cannot switch her over to her oral agents as of yet and therefore she cannot be discharged at this time. IV phenergan was started with modest improvement. I will initiate a trial of Haldol as suggested by Dr. Jordan at [place]. - Time Time Spent with patient: 15-24 minutes - Inpatient Certification Medical Necessity: Need For IV Fluids, Need for Pain Control
[2017-11-14] MEDS ORDERED: 1/2 NORMAL SALINE 1,000 ML IV PRN (16:35)
[2017-11-14] MEDS ORDERED: HALOPERIDOL LACTATE INJ 5 MG/1 ML VIAL IV PRN (16:37)
--- NOTE | 2017-11-14 17:31 | Progress Note ---
Provider Note Provider Note: The patient's nurse reports that Haldol has been tried in the past while at [place] in the patient had a terrible reaction. Therefore, I will not initiate a trial of Haldol. I will begin ARB.
[2017-11-14] MEDS: MIRTAZAPINE 15 MG TABLET PO SCH (21:23)
[2017-11-14] MEDS: TIZANIDINE HCL 4 MG TABLET PO SCH (21:25)
[2017-11-15] MEDS: HYDROMORPHONE HCL INJ/PF 2 MG/ML AMPULE IV PRN ×4 (03:52→21:12)
[2017-11-15] MEDS: OXYCODONE-ACETAMINOPHEN 5-325 MG TABLET PO PRN ×2 (06:59→14:15)
[2017-11-15 07:41] LABS: ANION GAP 10 (5-19); BLOOD UREA NITROGEN 7 mg/dL (7-20); CARBON DIOXIDE 23 mmol/L (22-30); CHLORIDE 105 mmol/L (98-107); GLUCOSE 85 mg/dL (75-110); POTASSIUM 3.7 mmol/L (3.6-5.0); SODIUM 138.1 mmol/L (137-145)
[2017-11-15] MEDS: MAGNESIUM OXIDE 400 MG TABLET PO SCH ×2 (10:37→21:11)
[2017-11-15] MEDS: NIFEDIPINE 30 MG TAB.ER.24 PO SCH ×2 (10:37→21:12)
[2017-11-15] MEDS: DOCUSATE SODIUM 100 MG CAPSULE PO SCH (10:37)
[2017-11-15] MEDS: PROMETHAZINE HCL 25 MG TABLET PO PRN (10:55)
--- NOTE | 2017-11-15 11:40 | PDOC PROGRESS REPORT ---
Subjective Progress Note for:: 11/15/17 Subjective:: The patient is a 37-year-old female who has a diagnosis of migraine. Apparently , her migraine history began after a traumatic fall down a flight of stairs. Her care is directed by a neurologist at [facility]. She presents now with intractable migraine pain. Unfortunately, she is unable to take any food p.o. Therefore, she is unable to use oral medications for her migraine. She also came in with uncontrolled hypertension. Her blood pressure is now under much better control. In general, she states that her headache will lead to hypertension from pain, but, she wonders if she has some underlying hypertension that also contributes to headaches. In addition, the patient is having intractable nausea and vomiting and she is unable to take anything p.o. Yesterday, I was able to speak to the patient's neurologist, Dr. Abdulkadir Jordan at [facility]. He states that the patient has been refractory in the past to IV Depakote and dihydroergotamine. He recommended that I initiate a trial of Haldol. When I discussed this with the patient she stated that Haldol has already been tried and she had a terrible reaction to the Haldol and she was not willing to try this again. Dr. Jordan also told me that she is supposed to be taking candesartan. Unfortunately, the [place] has not approved this medication and therefore she is not using the candesartan as recommended by Dr. Jordan which I believe is 12 mg per day. Today, the patient states that she still not able to eat or drink. She tried to eat pizza last night but vomited up the pizza. She is also asking for an increased dose of her Dilaudid. Reason For Visit: INTRACTABLE MIGRAINE Physical Exam Vital Signs: Temp Pulse Resp BP Pulse Ox 98.1 F 86 16 125/74 100 11/15/17 08:11 11/15/17 08:11 11/15/17 08:11 11/15/17 08:11 11/15/17 08:11 Intake & Output 11/14/17 11/15/17 11/16/17 06:59 06:59 06:59 Intake Total 1805 1740 Output Total 200 Balance 1805 1540 Weight 46.8 kg Additional comments: The patient's neurological exam is unremarkable. Cognitively, she remains intact. She follows commands and moves all 4 extremities. Her facial appearance is unremarkable. Her lungs are clear to auscultation bilaterally. Her cardiac exam is regular without murmurs, gallops or rubs. The abdomen is soft, flat and benign. She does not have guarding or rebound noted and there are no hernias or masses present. The lower extremities are unremarkable. Skin exam is unremarkable. Results Laboratory Results: 11/15/17 06:48 11/15/17 06:48 Sodium 138.1 Potassium 3.7 Chloride 105 Carbon Dioxide 23 Anion Gap 10 BUN 7 Creatinine 0.72 Est GFR ( Amer) > 60 Est GFR (Non-Af Amer) > 60 Glucose 85 Calcium 9.0 Magnesium 2.0 Impressions: Head CT 11/12/17 00:00 IMPRESSION: NORMAL BRAIN CT WITHOUT CONTRAST. EVIDENCE OF ACUTE STROKE: NO. Assessment & Plan - Diagnosis (1) Hypertensive urgency Is this a current diagnosis for this admission?: Yes Plan: Resolved. Continue nifedipine. Patient also has clonidine ordered as needed. I was going to add candesartan yesterday, but this is not on formulary. In addition, the patient does not have access to this medication. Instead, I increased her dose of nifedipine. (2) Hypokalemia Is this a current diagnosis for this admission?: Yes Plan: Resolved. (3) Migraine headache Qualifiers: Migraine type: unspecified Status migrainosus presence: without status migrainosus Intractability: intractable Qualified Code(s): G43.919 - Migraine, unspecified, intractable, without status migrainosus Is this a current diagnosis for this admission?: Yes Plan: Patient did not improve after steroids, Robaxin and Depakote. She is currently on IV pain control due to persistent nausea with intermittent vomiting. Therefore, I cannot switch her over to her oral agents as of yet and therefore she cannot be discharged at this time. IV phenergan was started with modest improvement. I will go up on her Dilaudid dose. I am wondering if there could be a component of drug-seeking or malingering. However, after talking with Dr. Jordan I certainly believe that she has the diagnosis of intractable migraine. Unfortunately, with chronic use of narcotics there can be additional diagnoses such as drug-seeking behavior, etc. In any event the next step according to Dr. Jordan will be to have anesthesia monitored the patient while she is receiving IV barbiturates to try to abort the migraine. I told the patient that we do not have these services available. If she does not improve we may need to transfer the patient to [facility]. - Time Time Spent with patient: 15-24 minutes - Inpatient Certification Medical Necessity: Need For IV Fluids, Need for Pain Control
[2017-11-15] MEDS: ONDANSETRON HCL INJ/PF 4 MG/2 ML SDV IV PRN ×2 (13:38→22:58)
[2017-11-15] MEDS: TIZANIDINE HCL 4 MG TABLET PO SCH (21:11)
[2017-11-15] MEDS: MIRTAZAPINE 15 MG TABLET PO SCH (21:12)
[2017-11-16] MEDS: 1/2 NORMAL SALINE 1,000 ML IV PRN ×2 (00:30→16:40)
[2017-11-16 07:23] LABS: ANION GAP 9 (5-19); BLOOD UREA NITROGEN 9 mg/dL (7-20); CARBON DIOXIDE 27 mmol/L (22-30); CHLORIDE 105 mmol/L (98-107); GLUCOSE 95 mg/dL (75-110); POTASSIUM 3.9 mmol/L (3.6-5.0); SODIUM 141.3 mmol/L (137-145)
[2017-11-16] MEDS: HYDROMORPHONE HCL INJ/PF 2 MG/ML AMPULE IV PRN ×4 (08:13→22:29)
[2017-11-16] MEDS: NIFEDIPINE 30 MG TAB.ER.24 PO SCH ×2 (10:09→21:25)
[2017-11-16] MEDS: DOCUSATE SODIUM 100 MG CAPSULE PO SCH (10:09)
[2017-11-16] MEDS: MAGNESIUM OXIDE 400 MG TABLET PO SCH ×2 (10:09→21:25)
[2017-11-16] MEDS: PROMETHAZINE HCL INJ 25 MG/1 ML VIAL IV PRN ×2 (10:13→19:06)
[2017-11-16] MEDS: LORAZEPAM INJ 2 MG/1 ML VIAL IV PRN ×2 (11:58→21:50)
[2017-11-16] MEDS: ONDANSETRON HCL INJ/PF 4 MG/2 ML SDV IV PRN (14:28)
[2017-11-16] MEDS ORDERED: ZIPRASIDONE MESYLATE INJ/PF 20 MG SDV IM ONE (17:30)
[2017-11-16] MEDS: POTASSI CL 20 MEQ/D5-1/2NS 1L 1,000 ML IV PRN (17:55)
--- NOTE | 2017-11-16 17:55 | PDOC PROGRESS REPORT ---
Subjective Progress Note for:: 11/16/17 Subjective:: Patient complains of headache and not been able to keep anything down. Complains of pressure in her forehead. Review of systems All organ systems evaluated and negative except as in subjective All laboratories and significant diagnostics have been reviewed Reason For Visit: INTRACTABLE MIGRAINE Physical Exam Vital Signs: Temp Pulse Resp BP Pulse Ox 98.2 F 82 15 118/78 100 11/16/17 07:47 11/16/17 07:47 11/16/17 07:47 11/16/17 07:47 11/16/17 07:47 Intake & Output 11/15/17 11/16/17 11/17/17 06:59 06:59 06:59 Intake Total 1740 720 Output Total 200 975 Balance 1540 -255 Weight 46.8 kg General appearance: PRESENT: cooperative, mild distress Head exam: PRESENT: atraumatic, normocephalic Eye exam: PRESENT: EOMI, nystagmus, PERRLA Ear exam: PRESENT: normal external ear exam Mouth exam: PRESENT: moist Neck exam: PRESENT: full ROM. ABSENT: JVD, lymphadenopathy, tenderness Respiratory exam: PRESENT: clear to auscultation rolando Cardiovascular exam: PRESENT: RRR. ABSENT: diastolic murmur, systolic murmur Vascular exam: PRESENT: normal capillary refill GI/Abdominal exam: PRESENT: soft. ABSENT: normal bowel sounds, tenderness Extremities exam: ABSENT: full ROM, joint swelling, pedal edema Musculoskeletal exam: PRESENT: ambulatory, full ROM Neurological exam: PRESENT: alert, awake, oriented to person, oriented to place , oriented to time, oriented to situation, CN II-XII grossly intact Psychiatric exam: PRESENT: appropriate affect, normal mood Skin exam: PRESENT: intact, normal color Results Laboratory Results: 11/16/17 06:42 11/16/17 06:42 Sodium 141.3 Potassium 3.9 Chloride 105 Carbon Dioxide 27 Anion Gap 9 BUN 9 Creatinine 0.82 Est GFR ( Amer) > 60 Est GFR (Non-Af Amer) > 60 Glucose 95 Calcium 10.0 Impressions: Head CT 11/12/17 00:00 IMPRESSION: NORMAL BRAIN CT WITHOUT CONTRAST. EVIDENCE OF ACUTE STROKE: NO. Assessment & Plan - Diagnosis (1) Hypertensive emergency without congestive heart failure Is this a current diagnosis for this admission?: Yes Plan: Improved (2) Hypokalemia Is this a current diagnosis for this admission?: Yes Plan: Replaced (3) Migraine headache Qualifiers: Migraine type: unspecified Status migrainosus presence: without status migrainosus Intractability: intractable Qualified Code(s): G43.919 - Migraine, unspecified, intractable, without status migrainosus Is this a current diagnosis for this admission?: Yes Plan: Try Geodon and scopolamine patch. Patient claims that she did not tolerate Zyprexa in the past - Time Time Spent with patient: 15-24 minutes Medications reviewed and adjusted accordingly: Yes Anticipated discharge: Home Within: within 72 hours - Inpatient Certification Based on my medical assessment, after consideration of the patient's comorbidities, presenting symptoms, or acuity I expect that the services needed warrant INPATIENT care.: Yes I certify that my determination is in accordance with my understanding of Medicare's requirements for reasonable and necessary INPATIENT services [42 CFR 412.3e].: Yes Medical Necessity: Need Close Monitoring Due to Risk of Patient Decompensation
[2017-11-16] MEDS ORDERED: SCOPOLAMINE HYDROBROMIDE 1.5 MG PATCH.TD72 TD SCH (18:00)
[2017-11-16] MEDS: MIRTAZAPINE 15 MG TABLET PO SCH (21:23)
[2017-11-16] MEDS: TIZANIDINE HCL 4 MG TABLET PO SCH (21:24)
[2017-11-17] MEDS: POTASSI CL 20 MEQ/D5-1/2NS 1L 1,000 ML IV PRN ×2 (04:18→13:59)
[2017-11-17 07:23] LABS: BLOOD UREA NITROGEN 10 mg/dL (7-20); GLUCOSE 107 mg/dL (75-110)
[2017-11-17 07:24] LABS: ANION GAP 8 (5-19); CARBON DIOXIDE 25 mmol/L (22-30); CHLORIDE 107 mmol/L (98-107); POTASSIUM 3.7 mmol/L (3.6-5.0); SODIUM 140.3 mmol/L (137-145)
[2017-11-17] MEDS: HYDROMORPHONE HCL INJ/PF 2 MG/ML AMPULE IV PRN ×4 (08:16→22:24)
[2017-11-17] MEDS: PROMETHAZINE HCL INJ 25 MG/1 ML VIAL IV PRN (08:17)
[2017-11-17] MEDS: DOCUSATE SODIUM 100 MG CAPSULE PO SCH (10:16)
[2017-11-17] MEDS: NIFEDIPINE 30 MG TAB.ER.24 PO SCH ×2 (10:16→21:30)
[2017-11-17] MEDS: MAGNESIUM OXIDE 400 MG TABLET PO SCH ×2 (10:16→21:22)
[2017-11-17] MEDS: LORAZEPAM INJ 2 MG/1 ML VIAL IV PRN (10:16)
[2017-11-17] MEDS ORDERED: LORAZEPAM INJ 2 MG/1 ML VIAL IV PRN (16:20)
--- NOTE | 2017-11-17 16:31 | PDOC PROGRESS REPORT ---
Subjective Progress Note for:: 11/17/17 Subjective:: Relates a still having headache however was able to keep some food down during breakfast Review of systems All organ systems evaluated and negative except as in subjective All laboratories and significant diagnostics have been reviewed Reason For Visit: INTRACTABLE MIGRAINE Physical Exam Vital Signs: Temp Pulse Resp BP Pulse Ox 97.9 F 68 20 122/64 97 11/17/17 03:59 11/17/17 03:59 11/17/17 03:59 11/17/17 03:59 11/16/17 23:10 Intake & Output 11/16/17 11/17/17 11/18/17 06:59 06:59 06:59 Intake Total 720 680 Output Total 975 Balance -255 680 Weight 74.6 kg General appearance: PRESENT: no acute distress, cooperative, well-developed, well-nourished Head exam: PRESENT: atraumatic, normocephalic Eye exam: PRESENT: conjunctiva pink, EOMI Mouth exam: PRESENT: moist Respiratory exam: PRESENT: clear to auscultation rolando Cardiovascular exam: PRESENT: RRR. ABSENT: diastolic murmur, systolic murmur Vascular exam: PRESENT: normal capillary refill GI/Abdominal exam: PRESENT: normal bowel sounds, soft. ABSENT: tenderness Neurological exam: PRESENT: alert, awake, oriented to person, oriented to place , oriented to time, oriented to situation, CN II-XII grossly intact Psychiatric exam: PRESENT: appropriate affect, normal mood Results Laboratory Results: 11/17/17 06:40 11/17/17 06:40 Sodium 140.3 Potassium 3.7 Chloride 107 Carbon Dioxide 25 Anion Gap 8 BUN 10 Creatinine 0.73 Est GFR ( Amer) > 60 Est GFR (Non-Af Amer) > 60 Glucose 107 Calcium 9.0 Impressions: Head CT 11/12/17 00:00 IMPRESSION: NORMAL BRAIN CT WITHOUT CONTRAST. EVIDENCE OF ACUTE STROKE: NO. Assessment & Plan - Diagnosis (1) Hypertensive emergency without congestive heart failure Is this a current diagnosis for this admission?: Yes Plan: Resolved (2) Hypokalemia Is this a current diagnosis for this admission?: Yes Plan: Replaced (3) Migraine headache Qualifiers: Migraine type: unspecified Status migrainosus presence: without status migrainosus Intractability: intractable Qualified Code(s): G43.919 - Migraine, unspecified, intractable, without status migrainosus Is this a current diagnosis for this admission?: Yes Plan: Decreased dose of Dilaudid and Ativan. Continue scopolamine and placed on Geodon orally - Time Time Spent with patient: 15-24 minutes Medications reviewed and adjusted accordingly: Yes Anticipated discharge: Home Within: within 48 hours - Inpatient Certification Based on my medical assessment, after consideration of the patient's comorbidities, presenting symptoms, or acuity I expect that the services needed warrant INPATIENT care.: Yes I certify that my determination is in accordance with my understanding of Medicare's requirements for reasonable and necessary INPATIENT services [42 CFR 412.3e].: Yes Medical Necessity: Need Close Monitoring Due to Risk of Patient Decompensation, Need for Pain Control
[2017-11-17] MEDS: LABETALOL HCL 200 MG TABLET PO SCH (21:24)
[2017-11-17] MEDS: MIRTAZAPINE 15 MG TABLET PO SCH (21:30)
[2017-11-17] MEDS: TIZANIDINE HCL 4 MG TABLET PO SCH (21:31)
[2017-11-17] MEDS ORDERED: ZIPRASIDONE HCL 20 MG CAPSULE PO SCH (22:00)
[2017-11-18] MEDS: POTASSI CL 20 MEQ/D5-1/2NS 1L 1,000 ML IV PRN (01:53)
[2017-11-18] MEDS: ACETAMINOPHEN 325 MG TABLET PO PRN (03:46)
[2017-11-18] MEDS: LABETALOL HCL 200 MG TABLET PO SCH (06:27)
[2017-11-18] MEDS: PROMETHAZINE HCL 25 MG TABLET PO PRN (09:00)
[2017-11-18 10:10] VITALS: BP 127/75
[2017-11-18] MEDS: MAGNESIUM OXIDE 400 MG TABLET PO SCH (10:11)
[2017-11-18] MEDS: NIFEDIPINE 30 MG TAB.ER.24 PO SCH (10:11)
[2017-11-18] MEDS: DOCUSATE SODIUM 100 MG CAPSULE PO SCH (10:11)
--- NOTE | 2017-11-18 15:54 | PDOC DISCHARGE SUMMARY ---
General - Admit/Disc Date/PCP Admission Date/Primary Care Provider: 11/13/17 10:45 Discharge Date: 11/18/17 - Discharge Diagnosis (1) Hypertensive emergency without congestive heart failure Is this a current diagnosis for this admission?: Yes (2) Hypokalemia Is this a current diagnosis for this admission?: Yes (3) Migraine headache Is this a current diagnosis for this admission?: Yes - Additional Information Resuscitation Status: Full Code Discharge Diet: As Tolerated Discharge Activity: Activity As Tolerated Prescriptions: Labetalol HCl [Normodyne 200 mg Tablet] 200 mg PO Q8 #90 tablet Nifedipine [Procardia XL 30 mg Tablet] 30 mg PO Q12 #60 tab.er.24 Promethazine HCl [Phenergan 25 mg Tablet] 12.5 mg PO Q6HP PRN #30 tablet PRN Reason: Scopolamine Hydrobromide [Transderm-Scop 1.5 mg Patch] 1 each TD Q3DAYS@1800 # 10 patch.[id number] Home Medications: Diphenhydramine HCl [Benadryl] 50 mg PO QHS 11/10/17 Mirtazapine [Remeron 15 mg Tablet] 45 mg PO QHS 11/10/17 Tizanidine HCl [Zanaflex 4 mg Tablet] 12 mg PO QHS 11/10/17 Labetalol HCl [Normodyne 200 mg Tablet] 200 mg PO Q8 #90 tablet 11/18/17 Nifedipine [Procardia XL 30 mg Tablet] 30 mg PO Q12 #60 tab.er.24 11/18/17 Promethazine HCl [Phenergan 25 mg Tablet] 12.5 mg PO Q6HP PRN #30 tablet Scopolamine Hydrobromide [Transderm-Scop 1.5 mg Patch] 1 each TD Q3DAYS@1800 # 10 patch.[email or web address] 11/18/17 History of Present Illness History of Present Illness: RAAD POTTS is a 37 year old female with a history of migraines. Patient stated that normally she has headaches twice a week however this time she has been having headache for the past 4 days. Patient stated she has been nauseated and vomiting. Patient stated normally at home she takes her Maxalt but was not helping on this occasion. Patient stated she spent time laying on the floor with a cool rag on her head. Patient stated that normally when this happens she comes to the ED and she is given magnesium, Dilaudid, Phenergan and it normally works. Patient follows up with [place] neurolog[facility]. In the ED patient was found to be hypertensive with a systolic blood pressure 176/107. Patient stated normally she is not hypertensive however when she does have a headache her blood pressure does go up. Hospitalist was called to admit patient for intractable migraine and hypertensive emergency. Hospital Course Hospital Course: Patient was admitted under the hospitalist service. Multiple modalities for pain control and antiemetics were pursued. Unfortunately, she continued to complain of pain scale of 5 out of 5. We revisited previous medications as it appeared in her medical chart and she has multiple allergies or side effects to the most commonly used medications. Blood pressure improved and at the time of discharge she is being discharged on antihypertensive medication. I do not think that her symptoms relate to blood pressure issues. We do not have a neurologist in-house that can assist in the management of her medical condition. Previous provider had contacted her neurologist in [place], however after pursuing recommendation patient was still complaining of headache. We recommended patient to be discharged and she was agreeable to pursue this avenue since we lack the resources needed. She was to follow-up with her regular neurologist at [facility]. Since we did not have any other avenues to offer her and this being a chronic problem prompted to discharge with her blessing. Physical Exam Vital Signs: Temp Pulse Resp BP Pulse Ox 98.4 F 78 14 127/75 H 100 11/18/17 07:59 11/18/17 07:59 11/18/17 07:59 11/18/17 07:59 11/18/17 07:59 Intake & Output 11/17/17 11/18/17 11/19/17 06:59 06:59 06:59 Intake Total 680 2520 Output Total 1720 Balance 680 800 Weight 74.6 kg 141 kg General appearance: PRESENT: no acute distress, cooperative, obese Head exam: PRESENT: atraumatic, normocephalic Eye exam: PRESENT: conjunctiva pink, EOMI, PERRLA. ABSENT: nystagmus Ear exam: PRESENT: normal external ear exam Mouth exam: PRESENT: moist Neck exam: PRESENT: full ROM. ABSENT: JVD, lymphadenopathy, thyromegaly Respiratory exam: PRESENT: clear to auscultation rolando Cardiovascular exam: PRESENT: RRR. ABSENT: diastolic murmur, systolic murmur Vascular exam: PRESENT: normal capillary refill GI/Abdominal exam: PRESENT: normal bowel sounds, soft. ABSENT: tenderness Extremities exam: PRESENT: clubbing, full ROM. ABSENT: joint swelling, pedal edema Musculoskeletal exam: PRESENT: ambulatory Neurological exam: PRESENT: alert, awake, oriented to person, oriented to place , oriented to time, CN II-XII grossly intact Psychiatric exam: PRESENT: flat affect Skin exam: PRESENT: intact, normal color Results Laboratory Results: 11/17/17 06:40 Impressions: Head CT 11/12/17 00:00 IMPRESSION: NORMAL BRAIN CT WITHOUT CONTRAST. EVIDENCE OF ACUTE STROKE: NO. Plan Discharge Plan: Discharge home Time Spent: Less than 30 Minutes
== END 2017-11-18 12:30 | disposition home or self-care (01) | DRG 305 ==
LOC: ER 10:16 → EH 19:40 → 3W 23:29 → 2S 11-13 05:21 → OBSVTOIN 11-13 10:45
PROVIDERS: ADMIT Pediatrics; ATTEND Pediatrics
DX: I16.0 Hypertensive urgency (principal); G43.909 Migraine, unspecified, not intractable, without status migrainosus; E87.6 Hypokalemia; R11.2 Nausea with vomiting, unspecified; Z88.8 Allergy status to other drugs, medicaments and biological substances; G43.809 Other migraine, not intractable, without status migrainosus
CPT/HCPCS: 36415; 70450; 80048; 80053; 83735; 85025; 96361; 96374; 96375; 96376; 99285; G0378; J0360; J1100; J1170; J1200; J2060; J2405; J2550; J2800; J3475; J3480; J3490; J7030

== ENCOUNTER 2018-08-31 15:16 | Emergency (ER) | payer OTHER ==
--- NOTE | 2018-08-31 16:07 | ER Document Report ---
HPI - HPI Patient complains to provider of: Flulike symptoms sore throat chills fever body aches Time Seen by Provider: 08/31/18 16:06 Onset: Last week Onset/Duration: Persistent Quality of pain: Achy Pain Level: 2 Context: She presents emergency department with complaints of flulike symptoms for the past 6 days. She reports fever up to 102. Last time she took Tylenol was at 1300 today. She reports she had a really bad cough last week but it is not as bad this week. She reports nausea reports she is only able to eat crackers and drink wayne kenia. Denies diarrhea denies pain with void. Reports that she has been taking [id number] medications to help with the symptoms without relief. Reports she did receive the flu vaccine 3 weeks ago. Patient does not work out of the home. Reports no other family members are ill. Associated Symptoms: Body/muscle aches, Fever, Sore throat Exacerbated by: Denies Relieved by: Denies Similar symptoms previously: No Recently seen / treated by doctor: No - REPRODUCTIVE Reproductive: DENIES: : Past Medical History - General Information source: Patient - Social History Smoking Status: Unknown if Ever Smoked Cigarette use (# per day): No Frequency of alcohol use: None Drug Abuse: None Lives with: Family Family History: DM Patient has suicidal ideation: No Patient has homicidal ideation: No Neurological Medical History: Reports: Hx Migraine Renal/ Medical History: Reports: Hx Kidney Stones. 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 IN LAST 30 DAYS: No - HEENT HEENT: Atraumatic, Normal ENT Exam, Normocephalic. negative: Conjuctival Injection, Pharyngeal Exudate, Pharyngeal Tenderness, Pharyngeal Erythema, Tympanic Membrane Red, Tympanic Membrane Bulging - NECK Neck: Normal Inspection, Supple. negative: Lymphadenopathy-Left, Lymphadenopathy-Right - RESPIRATORY Respiratory: Breath Sounds Normal, No Respiratory Distress - CARDIOVASCULAR Cardiovascular: Regular Rate, Regular Rhythm - GI/ABDOMEN Gastrointestinal: Abdomen Soft, Abdomen Non-Tender - MUSCULOSKELETAL/EXTREMETIES Musculoskeletal/Extremeties: АНДРЕЙ LARSON - NEURO Level of Consciousness: Awake, Alert, Appropriate Motor/Sensory: No Motor Deficit - DERM Integumentary: Warm, Dry, No Rash Course - Re-evaluation Re-evalutation: 08/31/18 16:58 She was instructed on the importance of monitoring temperature take Tylenol as indicated push fluids and try not to wrap herself open to many warm blankets. She verbalized understanding to all instructions. Dictation of this chart was performed using voice recognition software; therefore, there may be some unintended grammatical errors. - Vital Signs Vital signs: Temp Pulse Resp BP Pulse Ox 99.7 F 72 18 167/101 H 100 08/31/18 15:27 08/31/18 15:27 08/31/18 15:27 08/31/18 15:27 08/31/18 15:27 Discharge - Discharge Clinical Impression: Sore throat, Cough, Flu-like symptoms Condition: Stable Disposition: HOME, SELF-CARE Instructions: Oral Narcotic Medication ([facility]), Sore Throat ([facility]) Additional Instructions: *You have been evaluated for flu like symptoms *Your rapid strep was negative. A throat culture has been done, you will be contacted in 2-3 days should you need antibiotics. *Increase fluid intake as discussed *Take medication as prescribed *Monitor your temperature, take Tylenol as indicated *Follow up with a primary care provider within one week *Return to ED for worsening condition, changes, needs Monitor your blood pressure. Your blood pressure was elevated today. This may be because you were anxious, in pain or because you need medication. It is important to follow up with your primary care provider for full evaluation. Forms: Elevated Blood Pressure
[2018-08-31] MEDS ORDERED: HYDROCODONE/ACETAMINOPHEN 5-325 MG (6 TAB/ER DISP) PO PRN (16:55)
[2018-08-31 17:00] VITALS: BP 173/98
== END 2018-08-31 17:11 | disposition home or self-care (01) ==
LOC: ER 15:16
DX: J02.9 Acute pharyngitis, unspecified (principal); R50.9 Fever, unspecified; R11.0 Nausea; M79.10 Myalgia, unspecified site; R05 Cough
CPT/HCPCS: 87070; 87880; 99283

== ENCOUNTER 2019-09-04 12:48 | Emergency (ER) | payer OTHER ==
[2019-09-04] MEDS ORDERED: BUTALB/ACETAMINOPHEN/CAFFEINE 1 TAB EACH PO ONE (13:06)
[2019-09-04] MEDS ORDERED: ONDANSETRON HCL INJ/PF 4 MG/2 ML SDV IV ONE (13:06)
[2019-09-04] MEDS ORDERED: NORMAL SALINE 1000 ML 1,000 ML IV ONE (13:06)
[2019-09-04] MEDS ORDERED: DIPHENHYDRAMINE HCL 50 MG/ML VIAL IV ONE (13:06)
--- NOTE | 2019-09-04 13:09 | ER Document Report ---
ED Medical Screen (RME) - General Chief Complaint: Headache Stated Complaint: HEADACHE Time Seen by Provider: 09/04/19 13:05 Primary Care Provider: YEHUDA ANNE MD [Primary Care Provider] - Follow up as needed Notes: Patient is a 38-year-old female history of migraines presents to the emergency department with a migraine headache. Patient voices she has taken Maxalt this morning for headache. States she is also tried sublingual Zofran but states she continues to vomit. Patient voices she is allergic to Toradol, Reglan. Voices "typically they have to give me Dilaudid." GENERAL: Alert, obvious photophobia noted, sunglasses on. HEAD: Normocephalic, atraumatic. EXTREMITIES: Moves all 4 extremities spontaneously. No edema, normal radial and dorsalis pedis pulses bilaterally. No cyanosis. 5 out of 5 strength noted all 4 extremities. NEUROLOGICAL: Alert and oriented x3. Normal speech. cranial nerves II through XII grossly intact. I have greeted and performed a rapid initial assessment of this patient. A comprehensive ED assessment and evaluation of the patient, analysis of test results and completion of the medical decision making process will be conducted by additional ED providers. I have specifically instructed the patient or family members with the patient to immediately return to any nursing staff should anything change in the patient's condition or with their chief complaint. This medical record was dictated with voice recognizing software. There may be grammatical, syntax errors that are unintended. TRAVEL OUTSIDE OF THE [place] IN LAST 30 DAYS: No - Related Data Allergies/Adverse Reactions: ketorolac tromethamine [From Toradol] Allergy (Verified 09/04/19 13:01) metoclopramide [From Reglan] Allergy (Verified 09/04/19 13:01) quetiapine fumarate [From Seroquel] Allergy (Verified 09/04/19 13:01) sumatriptan [From Imitrex] Allergy (Verified 09/04/19 13:01) topiramate [From Topamax] Allergy (Verified 09/04/19 13:01) venlafaxine [Venlafaxine] Allergy (Verified 09/04/19 13:01) ketamine Adverse Reaction (Verified 09/04/19 13:01) Past Medical History - Social History Frequency of alcohol use: None Drug Abuse: None Neurological Medical History: Reports: Hx Migraine Renal/ Medical History: Reports: Hx Kidney Stones. 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 Past Surgical History: Reports: Hx Breast Surgery - biopsy, Hx Oral Surgery - wisdom teeth, Hx Tonsillectomy, Hx Urinary Tract Surgery - kidney stone removalx2 - Immunizations Immunizations up to date: Yes Hx Diphtheria, Pertussis, Tetanus Vaccination: Yes Physical Exam - Vital signs Vitals: Temp Pulse Resp BP Pulse Ox 98.1 F 80 18 170/107 H 99 09/04/19 12:53 09/04/19 12:53 09/04/19 12:53 09/04/19 12:53 09/04/19 12:53 Course - Vital Signs Vital signs: Temp Pulse Resp BP Pulse Ox 98.1 F 80 18 170/107 H 99 09/04/19 12:53 09/04/19 12:53 09/04/19 12:53 09/04/19 12:53 09/04/19 12:53 Doctor's Discharge - Discharge Referrals: YEHUDA ANNE MD [Primary Care Provider] - Follow up as needed
--- NOTE | 2019-09-04 13:40 | ER Document Report ---
ED Headache - General Chief Complaint: Headache Stated Complaint: HEADACHE Time Seen by Provider: 09/04/19 13:05 Primary Care Provider: YEHUDA ANNE MD [ACTIVE STAFF] - Follow up as needed Mode of Arrival: Ambulatory Information source: Patient Notes: Patient presents complaining of right sided headache pain started around 4:00 this morning. Patient states that she frequently gets migraines about 2-3 times a week. Patient states she ate peanuts yesterday and suspects this may have been a trigger for her. Patient denies any fever or head injury. Patient states headache pain is typical flareups she has had in the past. TRAVEL OUTSIDE OF THE [place] IN LAST 30 DAYS: No - HPI Patient complains to provider of: "Migraine" Patient reports: Frequent migraines Onset: This morning Onset was: Gradual Timing: Worse Quality of pain: Sharp Pain Level: 5 Context: denies: Head injury Associated symptoms: Nausea/vomiting, Photophobia. denies: Fever, Stiff neck, Trouble walking Exacerbated by: Light, Noise Similar symptoms previously: Yes Recently seen / treated by doctor: No - Related Data Allergies/Adverse Reactions: ketorolac tromethamine [From Toradol] Allergy (Verified 09/04/19 13:01) metoclopramide [From Reglan] Allergy (Verified 09/04/19 13:01) quetiapine fumarate [From Seroquel] Allergy (Verified 09/04/19 13:01) sumatriptan [From Imitrex] Allergy (Verified 09/04/19 13:01) topiramate [From Topamax] Allergy (Verified 09/04/19 13:01) venlafaxine [Venlafaxine] Allergy (Verified 09/04/19 13:01) ketamine Adverse Reaction (Verified 09/04/19 13:01) Past Medical History - General Information source: Patient - Social History Smoking Status: Never Smoker Frequency of alcohol use: None Drug Abuse: None 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 denies: Fever, Recent illness EENT: No symptoms reported Cardiovascular: No symptoms reported. denies: Chest pain Respiratory: No symptoms reported. denies: Cough, Short of breath Gastrointestinal: Nausea, Vomiting. denies: Abdominal pain Genitourinary: No symptoms reported Female Genitourinary: No symptoms reported Musculoskeletal: No symptoms reported. denies: Back pain, Neck pain Skin: No symptoms reported. denies: Rash Hematologic/Lymphatic: No symptoms reported Neurological/Psychological: Headaches Physical Exam - Vital signs Vitals: Temp Pulse Resp BP Pulse Ox 98.1 F 80 18 170/107 H 99 09/04/19 12:53 09/04/19 12:53 09/04/19 12:53 09/04/19 12:53 09/04/19 12:53 - General General appearance: Appears well, Alert In distress: None - HEENT Head: Normocephalic, Atraumatic Eyes: Normal Conjunctiva: Normal Extraocular movements intact: Yes Eyelashes: Normal Pupils: PERRL Ears: Normal External canal: Normal Tympanic membrane: Normal Sinus: Normal Nasal: Normal Pharynx: Normal Neck: Normal, Supple. No: Brudzinski, Lymphadenopathy, Meningismus - Respiratory Respiratory status: No respiratory distress Chest status: Nontender Breath sounds: Normal. No: Rales, Rhonchi, Stridor, Wheezing Chest palpation: Normal - Cardiovascular Rhythm: Regular Heart sounds: S1 appreciated, S2 appreciated Murmur: No - Abdominal Inspection: Normal Distension: No distension Bowel sounds: Normal Tenderness: Nontender - Back Back: Normal, Nontender. No: CVA tenderness, Vertebra tenderness - Extremities General upper extremity: Normal inspection, Nontender, Normal strength General lower extremity: Normal inspection, Nontender, Normal strength - Neurological Neuro grossly intact: Yes Cognition: Normal [place] Coma Scale Eye Opening: Spontaneous [place] Coma Scale Verbal: Oriented [place] Coma Scale Motor: Obeys Commands [place] Coma Scale Total: 15 Speech: Normal Cranial nerves: Normal - Psychological Associated symptoms: Normal affect, Normal mood - Skin Skin Temperature: Warm Skin Moisture: Dry Skin Color: Normal Course - Re-evaluation Re-evalutation: 09/04/19 16:49 Patient reports only modest improvement of headache, additional medications ord ered at this time. 09/04/19 17:36 Patient reports resolution of headache at this time. Patient encouraged to follow-up with her neurologist for recheck. The patient presents with headache without signs of [employer] bleed, stroke, infection, or other serious etiology. The patient is neurologically intact. Given the extremely low risk of these diagnoses further testing and evaluation for these possibilities does not appear to be indicated at this time. The patient has been instructed to return if the symptoms worsen or change in any way. - Vital Signs Vital signs: Temp Pulse Resp BP Pulse Ox 98.0 F 80 15 159/102 H 100 09/04/19 18:00 09/04/19 12:53 09/04/19 18:00 09/04/19 18:00 09/04/19 18:00 Discharge - Discharge Clinical Impression: Migraine headache Qualifiers: Migraine type: unspecified Status migrainosus presence: without status migrainosus Intractability: not intractable Qualified Code(s): G43.909 - Migraine, unspecified, not intractable, without status migrainosus Condition: Stable Disposition: HOME, SELF-CARE Instructions: Use of Diphenhydramine, Headache ([facility]), Pain Medication Injection ([facility]) Additional Instructions: Return immediately for any new or worsening symptoms Followup with your primary care provider, call tomorrow to make a followup appointment Follow-up with your neurologist for recheck Referrals: YEHUDA ANNE MD [ACTIVE STAFF] - Follow up as needed
[2019-09-04] MEDS ORDERED: DEXAMETHASONE SOD PHOS INJ 10 MG/1 ML VIAL IV ONE (15:44)
[2019-09-04] MEDS ORDERED: PROMETHAZINE HCL INJ 25 MG/1 ML VIAL IM ONE (15:45)
[2019-09-04] MEDS ORDERED: HYDROMORPHONE HCL INJ/PF 2 MG/ML AMPULE IV ONE (16:48)
[2019-09-04 18:11] VITALS: BP 159/102
== END 2019-09-04 18:00 | disposition home or self-care (01) ==
LOC: ER 12:48
DX: G43.909 Migraine, unspecified, not intractable, without status migrainosus (principal); R11.2 Nausea with vomiting, unspecified; H53.149 Visual discomfort, unspecified; Z88.8 Allergy status to other drugs, medicaments and biological substances; Z88.6 Allergy status to analgesic agent
CPT/HCPCS: 99284; 96372; 96361; 96374; 96375; 36415; 84703; J3490; J1200; J1170; J2550; J2405; J7030; J1100

== ENCOUNTER 2019-11-22 22:20 | Emergency (ER) | payer OTHER ==
[2019-11-22] MEDS ORDERED: ONDANSETRON HCL INJ/PF 4 MG/2 ML SDV IV ONE (23:26)
[2019-11-22] MEDS ORDERED: HYDROMORPHONE HCL INJ/PF 2 MG/ML AMPULE IV ONE (23:26)
[2019-11-22] MEDS ORDERED: NORMAL SALINE 1000 ML 1,000 ML IV ONE (23:26)
[2019-11-22] MEDS ORDERED: DIPHENHYDRAMINE HCL 50 MG/ML VIAL IV ONE (23:27)
--- NOTE | 2019-11-22 23:28 | ER Document Report ---
ED Medical Screen (RME) - General Chief Complaint: Headache Stated Complaint: HEAD PAIN Time Seen by Provider: 11/22/19 23:17 Mode of Arrival: Ambulatory Information source: Patient Notes: Patient presents to the emergency department with complaints of a migraine that started this afternoon. She reports is her typical migraine throbbing on the left side of her forehead protestant area. Denies trauma. Denies fever reports she vomited up her Phenergan earlier. Also reports she recently heard about 2 deaths which she believes contributed to her headache. Reports sensitive to light. I have greeted and performed a rapid initial assessment of this patient. A comprehensive ED assessment and evaluation of the patient, analysis of test results and completion of the medical decision making process will be conducted by additional ED providers. TRAVEL OUTSIDE OF THE [place] IN LAST 30 DAYS: No - Related Data Allergies/Adverse Reactions: ketorolac tromethamine [From Toradol] Allergy (Verified 09/04/19 13:01) metoclopramide [From Reglan] Allergy (Verified 09/04/19 13:01) quetiapine fumarate [From Seroquel] Allergy (Verified 09/04/19 13:01) sumatriptan [From Imitrex] Allergy (Verified 09/04/19 13:01) topiramate [From Topamax] Allergy (Verified 09/04/19 13:01) venlafaxine [Venlafaxine] Allergy (Verified 09/04/19 13:01) ketamine Adverse Reaction (Verified 09/04/19 13:01) Home Medications: tizaadine, benadryl, maxalt, zofran prn, phenergan prn Past Medical History Neurological Medical History: Reports: Hx Migraine Renal/ Medical History: Reports: Hx Kidney Stones. 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
[2019-11-23] MEDS ORDERED: PROCHLORPERAZINE EDISYLATE INJ 10 MG/2 ML VIAL IV ONE (00:15)
--- NOTE | 2019-11-23 00:17 | ER Document Report ---
ED Headache - General Chief Complaint: Headache Stated Complaint: HEAD PAIN Time Seen by Provider: 11/22/19 23:17 [facility] Care Provider: [facility] [Primary Care Provider] - Follow up as needed Mode of Arrival: Ambulatory Notes: Patient is a 39-year-old female that comes emergency department for chief complaint of a headache. She states she has a throbbing headache on the left side of her head which is giving her light sensitivity and nausea. She states she vomited twice. She states she did not have a head injury, denies fever, she states she received some bad news about 2 separate deaths and after that she started developing the migraine. She states she gets about 2-3 migraines a week, she states she has a headache like this almost once a week but she vomited her Phenergan and Maxalt up which usually works. She denies that this is the worst headache of her life, she denies that this was maximal at onset. She denies history of hypertension but states that she is always told that her head blood pressure is high when she has a headache. She states she follows with a neurologist and has had repeated imaging of her brain. She denies any other complaints. Family member at bedside. TRAVEL OUTSIDE OF THE [place] IN LAST 30 DAYS: No - Related Data Allergies/Adverse Reactions: ketorolac tromethamine [From Toradol] Allergy (Verified 09/04/19 13:01) metoclopramide [From Reglan] Allergy (Verified 09/04/19 13:01) quetiapine fumarate [From Seroquel] Allergy (Verified 09/04/19 13:01) sumatriptan [From Imitrex] Allergy (Verified 09/04/19 13:01) topiramate [From Topamax] Allergy (Verified 09/04/19 13:01) venlafaxine [Venlafaxine] Allergy (Verified 09/04/19 13:01) ketamine Adverse Reaction (Verified 09/04/19 13:01) Home Medications: tizaadine, benadryl, maxalt, zofran prn, phenergan prn Past Medical History - General Information source: Patient - Social History Smoking Status: Never Smoker Frequency of alcohol use: None Drug Abuse: None Lives with: Family Family History: DM Patient has suicidal ideation: No Patient has homicidal ideation: No Neurological Medical History: Reports: Hx Migraine Renal/ Medical History: Reports: Hx Kidney Stones. 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 Past Surgical History: Reports: Hx Breast Surgery - biopsy, Hx Oral Surgery - wisdom teeth, Hx Tonsillectomy, Hx Urinary Tract Surgery - kidney stone removalx2 - Immunizations Immunizations up to date: Yes Hx Diphtheria, Pertussis, Tetanus Vaccination: Yes Review of Systems - Review of Systems Constitutional: No symptoms reported EENT: No symptoms reported Cardiovascular: No symptoms reported Respiratory: No symptoms reported Gastrointestinal: See HPI Genitourinary: No symptoms reported Female Genitourinary: No symptoms reported Musculoskeletal: No symptoms reported Skin: No symptoms reported Hematologic/Lymphatic: No symptoms reported Neurological/Psychological: See HPI Physical Exam - Vital signs Vitals: Temp Pulse Resp BP Pulse Ox 98.5 F 78 16 187/107 H 97 11/22/19 22:31 11/22/19 22:31 11/22/19 22:31 11/22/19 22:31 11/22/19 22:31 - Notes Notes: GENERAL: Patient squinting, appears somewhat uncomfortable, however she is not in severe distress and she is alert and cooperative HEAD: Normocephalic, atraumatic. EYES: Pupils equal, round, and reactive to light. Extraocular movements intact. ENT: Oral mucosa moist, tongue midline. Oropharynx unremarkable. Airway patent. LUNGS: Clear to auscultation bilaterally, no wheezes, rales, or rhonchi. No respiratory distress. HEART: Regular rate and rhythm. No murmur ABDOMEN: Soft, non-tender. Non-distended. EXTREMITIES: Moves all 4 extremities spontaneously. No edema, normal radial and dorsalis pedis pulses bilaterally. No cyanosis. BACK: no cervical, thoracic, lumbar midline tenderness. No saddle anesthesia, normal distal neurovascular exam. Moves all extremities in full range of motion. NEUROLOGICAL: Alert and oriented x3. Normal speech. Cranial nerves II through XII grossly intact. PSYCH: Normal affect, normal mood. SKIN: Warm, dry, normal turgor. No rashes or lesions noted. Course - Re-evaluation Re-evalutation: Patient initially appears mildly uncomfortable but not in distress. No neurological deficits. Vital signs show hypertension but otherwise unremarkable. Patient assures me that she only has hypertension when she has a headache and if we treat this this will normalize. She has had negative imaging and she states this headache is consistent with prior. We will attempt medications first. Patient given Compazine and Benadryl, and reevaluation headache is much better but she reports some nausea, she was given Zofran and additional Benadryl, IV fluids. On reevaluation headache is completely gone. Patient smiling, blood pressure unremarkable now, she has no current complaints and is requesting discharge. Based on her response to treatment, previous history of the same, unremarkable neurological exam, I have a very low suspicion of intracranial hemorrhage. Patient will be discharged with follow-up instructions and return precautions. Patient and family state understanding and agreement. - Vital Signs Vital signs: Temp Pulse Resp BP Pulse Ox 97.4 F 64 15 134/89 H 100 11/23/19 03:26 11/23/19 03:26 11/23/19 03:26 11/23/19 03:26 11/23/19 03:26 Discharge - Discharge Clinical Impression: Headache Qualifiers: Headache type: unspecified Headache chronicity pattern: acute headache Intractability: not intractable Qualified Code(s): R51 - Headache Condition: Stable Disposition: HOME, SELF-CARE Additional Instructions: Your evaluation, symptoms, and resolution with treatment are very suggestive of a migraine. You can take your prescribed medication if needed for headaches, caffeine can help as well. Follow-up with primary care for additional evaluation and management of migraines. Return if you worsen including returned or severe headache, vomiting, fever, or any other concerning or worsening symptoms. Referrals: [facility] [Primary Care Provider] - Follow up as needed
[2019-11-23] MEDS ORDERED: ONDANSETRON HCL INJ/PF 4 MG/2 ML SDV IV ONE (00:34)
[2019-11-23] MEDS ORDERED: DIPHENHYDRAMINE HCL 50 MG/ML VIAL IV ONE (00:34)
[2019-11-23 03:27] VITALS: BP 134/89
== END 2019-11-23 03:26 | disposition home or self-care (01) ==
LOC: ER 22:20
DX: R51 Headache (principal); H53.149 Visual discomfort, unspecified; R11.2 Nausea with vomiting, unspecified; Z88.3 Allergy status to other anti-infective agents; Z87.442 Personal history of urinary calculi
CPT/HCPCS: 99283; 96361; 96374; 96375; J1200; J0780; J2405; J7030

== ENCOUNTER 2020-10-28 16:05 | Emergency (ER) | payer OTHER ==
[2020-10-28] MEDS ORDERED: ONDANSETRON HCL INJ/PF 4 MG/2 ML SDV IV ONE ×2 (16:25→20:45)
[2020-10-28] MEDS ORDERED: MORPHINE SULFATE 10 MG/ML INJ IV PRN (16:25)
[2020-10-28] MEDS ORDERED: NORMAL SALINE 1000 ML 1,000 ML IV ONE (16:26)
--- NOTE | 2020-10-28 16:28 | ER Document Report ---
ED Medical Screen (RME) - General Chief Complaint: Possible Kidney Stone Stated Complaint: RIGHT FLANK PAIN Primary Care Provider: [facility] [Primary Care Provider] - Follow up as needed TRAVEL OUTSIDE OF THE [place] IN LAST 30 DAYS: No - HPI Notes: 10/28/20 16:26 Rapid Medical Exam HPI: This is a 40-year-old female presents to the ER complaining of right flank pain that began this morning. Patient complains of associated dysuria. Patient is tearful in triage and appears very uncomfortable. She states that she has a history of kidney stones and has had 4 prior procedures due to kidney stones. She denies any gross hematuria today. Patient says she is pretty sure that her symptoms today are related to kidney stones. Denies fever, chest pain, shortness of breath, vaginal discharge. Physical Exam: GENERAL: Well-appearing, well-nourished and in mild distress due to pain HEAD: Atraumatic, normocephalic. ENT: Moist mucous membranes. RESP: Respirations even and unlabored CV- Regular rate. NEURO: No focal neurological deficits. Moves all extremities spontaneously and on command. My involvement in this patients care was limited to a rapid initial assessment. A comprehensive ED assessment and evaluation of the patient, analysis of test results, treatment, and completion of the medical decision making process will be performed by other ER providers. - Related Data Allergies/Adverse Reactions: ketorolac tromethamine [From Toradol] Allergy (Verified 09/04/19 13:01) metoclopramide [From Reglan] Allergy (Verified 09/04/19 13:01) quetiapine fumarate [From Seroquel] Allergy (Verified 09/04/19 13:01) sumatriptan [From Imitrex] Allergy (Verified 09/04/19 13:01) topiramate [From Topamax] Allergy (Verified 09/04/19 13:01) venlafaxine [Venlafaxine] Allergy (Verified 09/04/19 13:01) ketamine Adverse Reaction (Verified 09/04/19 13:01) Past Medical History - Social History Chew tobacco use (# tins/day): No Frequency of alcohol use: None Drug Abuse: None Neurological Medical History: Reports: Hx Migraine Renal/ Medical History: Reports: Hx Kidney Stones. 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 Past Surgical History: Reports: Hx Breast Surgery - biopsy, Hx Oral Surgery - wisdom teeth, Hx Tonsillectomy, Hx Urinary Tract Surgery - kidney stone removalx2 - Immunizations Immunizations up to date: Yes Hx Diphtheria, Pertussis, Tetanus Vaccination: Yes Physical Exam - Vital signs Vitals: Temp Pulse Resp BP Pulse Ox 98.5 F 87 20 171/102 H 100 10/28/20 16:08 10/28/20 16:08 10/28/20 16:08 10/28/20 16:08 10/28/20 16:08 Course - Vital Signs Vital signs: Temp Pulse Resp BP Pulse Ox 98.5 F 87 20 171/102 H 100 10/28/20 16:08 10/28/20 16:08 10/28/20 16:08 10/28/20 16:08 10/28/20 16:08 Doctor's Discharge - Discharge Referrals: [facility] [Primary Care Provider] - Follow up as needed
[2020-10-28 17:14] LABS: APPEARANCE,URINE CLEAR; BILIRUBIN,URINE NEGATIVE (NEGATIVE); COLOR,URINE YELLOW; GLUCOSE, URINE NEGATIVE (NEGATIVE); KETONES,URINE NEGATIVE (NEGATIVE); LEUKOCYTE ESTERASE,URINE NEGATIVE (NEGATIVE); NITRITE,URINE NEGATIVE (NEGATIVE); PROTEIN,URINE NEGATIVE (NEGATIVE); URINE SPECIFIC GRAVITY 1.015; UROBILINOGEN,URINE NEGATIVE mg/dL (<2.0)
[2020-10-28 17:15] LABS: BASOPHILS % (AUTO) 0.6 % (0-2); TOTAL CELLS COUNTED % (AUTO) 100 %
[2020-10-28 17:20] LABS: ABSOLUTE EOSINOPHILS # (AUTO) 0.4 10^3/uL (0.0-0.6); ABSOLUTE LYMPHOCYTES (AUTO) 1.5 10^3/uL (0.5-4.7); ABSOLUTE MONOCYTES (AUTO) 0.4 10^3/uL (0.1-1.4); ABSOLUTE NEUT (AUTO) 2.7 10^3/uL (1.7-8.2); EOSINOPHILS % (AUTO) 7.1 % (0-6); HEMATOCRIT 39.6 % (36.0-47.0); HEMOGLOBIN 13.5 g/dL (12.0-15.5); LYMPHOCYTES % (AUTO) 30.6 % (13-45); MEAN CORPUSCULAR HGB CONC 34.1 g/dL (32.0-36.0); MEAN CORPUSCULAR VOLUME 91 fl (80-97); PLATELET COUNT 247 10^3/uL (150-450); RED BLOOD COUNT 4.37 10^6/uL (3.72-5.28); RED CELL DISTRIBUTION WIDTH 12.4 % (11.5-14.0); SEGMENTED NEUTROPHILS % (AUTO) 53.7 % (42-78)
[2020-10-28 17:31] LABS: ALBUMIN 4.1 g/dL (3.5-5.0); ALKALINE PHOSPHATASE 93 U/L (38-126); ANION GAP 6 (5-19); ASPARTATE AMINO TRANSFERASE 31 U/L (14-36); BILIRUBIN,DIRECT 0.1 mg/dL (0.0-0.4); BILIRUBIN,TOTAL 0.4 mg/dL (0.2-1.3); BLOOD UREA NITROGEN 8 mg/dL (7-20); CALCIUM 9.1 mg/dL (8.4-10.2); CARBON DIOXIDE 27 mmol/L (22-30); CHLORIDE 103 mmol/L (98-107); GLUCOSE 99 mg/dL (75-110); POTASSIUM 3.8 mmol/L (3.6-5.0)
--- NOTE | 2020-10-28 17:51 | RADIOLOGY REPORT (SQ) ---
EXAM DESCRIPTION: CT ABD/PELVIS NO ORAL OR IV IMAGES COMPLETED DATE/TIME: 10/28/2020 2:23 pm REASON FOR STUDY: right flank pain, kidney stone hx COMPARISON: 10/08/2016 TECHNIQUE: CT scan of the abdomen and pelvis performed without intravenous or oral contrast. Images reviewed with lung, soft tissue, and bone windows. Reconstructed coronal and sagittal MPR images revi ewed. All images stored on PACS. All CT scanners at this facility use dose modulation, iterative reconstruction, and/or weight based d osing when appropriate to reduce radiation dose to as low as reasonably achievable (ALARA). [facility]: Dose Right [facility]: CareDose [facility]: Dose Right [facility]: Teradose 4D [facility]: [employer] RADIATION DOSE: Total exam DLP 534mGy. LIMITATIONS: Suboptimal evaluation of the vasculature and solid organs due to lack of IV contrast. Mild motion artifact. FINDINGS: LOWER CHEST: Lung bases are clear. Partially visualized left breast nodules which appear to have been partially seen all on the prior examination in 2016. NON-CONTRASTED LIVER, SPLEEN, ADRENALS: Evaluation limited by lack of IV contrast. No identified sign ificant masses. PANCREAS: No masses. No peripancreatic inflammatory changes. GALLBLADDER: No identified stones by CT criteria. No inflammatory changes to suggest cholecystitis. RIGHT KIDNEY AND URETER: No suspicious masses. Assessment limited by lack of IV contrast. Multiple nonobstructing right renal calculi. No definite distal obstructing calculus. No hydronephrosis or hydroureter. LEFT KIDNEY AND URETER: No suspicious masses. Assessment limited by lack of IV contrast. Probable f ew punctate nonobstructing left renal calculi. No hydronephrosis or hydroureter. AORTA AND RETROPERITONEUM: No aneurysm. No retroperitoneal masses or adenopathy. BOWEL AND PERITONEAL CAVITY: No obvious masses or inflammatory changes. No free fluid. Moderate stoo l in the colon. APPENDIX: Normal. PELVIS, BLADDER, AND ABDOMINAL WALL:Small amount of free pelvic fluid is nonspecific. Urinary bladde r is unremarkable. Reproductive organs are suboptimally assessed on noncontrast CT. BONES: No significant findings. OTHER: No other significant finding. IMPRESSION: 1. Bilateral nonobstructing renal calculi, greater on the right. No distal obstructing calculus identified. 2. Partially visualized left breast nodules which appear at least partially visualized on prior CT, supportive of benign etiology. The superior lesion is better visualized on the current examination. Findings could represent benign lesions such as fibroadenomas, however dedicated imaging of the martha st would be recommended. COMMENT: Quality ID # [id number]: Final reports with documentation of one or more dose reduction techniques (e.g., Automated exposure control, adjustment of the mA and/or kV according to patient size, use of iterative reconstruction technique) TECHNICAL DOCUMENTATION: JOB ID: [id number] 2010 [employer]- All Rights Reserved Reading location - IP/workstation name: [email or web address]
[2020-10-28 20:09] VITALS: BP 168/92
== END 2020-10-28 20:38 | disposition left against medical advice (07) ==
LOC: ER 16:05
DX: N20.0 Calculus of kidney (principal); R30.0 Dysuria; N63.0 Unspecified lump in unspecified breast; Z88.8 Allergy status to other drugs, medicaments and biological substances; Z88.6 Allergy status to analgesic agent; Z53.20 Procedure and treatment not carried out because of patient's decision for unspecified reasons
CPT/HCPCS: 36415; 74176; 80053; 81001; 81025; 83690; 85025; 99281